=== PATIENT | female | born 1940 | race Caucasian/White ===

== ENCOUNTER 2023-05-11 23:24 | Observation (INO) | payer OTHER, SELFPAY ==
[2023-05-11] VITALS (7 sets, daily range): BP systolic 133–144; BP diastolic 69–97
[2023-05-11 19:34] LABS: % Basophils 0.9 % (0-2); % Eosinophils 3.4 % (0-6); % Immature Granulocytes 0.2 % (0-0.5); % Lymphocytes 41.6 % (20.5-51.1); % Monocytes 8.8 % (1.7-9.3); % Neutrophils 45.1 % (42.2-75.2); Absolute Basophils 0.1 10^3/uL (0-0.2); Absolute Eosinophils 0.2 10^3/uL (0-0.7); Absolute Lymphocytes 2.7 10^3/uL (1.2-3.4); Absolute Monocytes 0.6 10^3/uL (0.1-0.6); Absolute Neutrophils 2.9 10^3/uL (1.4-6.5); Hematocrit 38.9 % (37.0-47.0); Hemoglobin 12.4 g/dL (12.0-16.0); Mean Corp Hgb Conc. 31.9 g/dL (33.0-37.0); Mean Corpuscular Hgb 29.5 pg (27.0-31.0); Mean Corpuscular Volume 92.4 fL (81.0-99.0); Mean Platelet Volume 10.4 fL (7.4-10.4); Nucleated Red Blood Cells % 0 %; Platelet Count 250 10^3/uL (130-400); Red Blood Cell Count 4.21 10^6/uL (4.20-5.40); Red Cell Dist. Width 14.8 % (11.5-14.5); White Blood Cell Count 6.5 10^3/uL (4.8-10.8)
[2023-05-11 19:49] LABS: ALT (SGPT) 16 U/L (0-35); AST (SGOT) 27 U/L (14-36); Albumin 3.6 g/dl (3.5-5.0); Alkaline Phosphatase 83 U/L (38-126); Blood Urea Nitrogen 18 mg/dl (7-17); Carbon Dioxide 24 mmol/L (22-30); Chloride 104 mmol/L (98-107); Glucose 93 mg/dl (70-99); Potassium 3.9 mmol/L (3.5-5.1); Sodium 133 mmol/L (135-145); Total Bilirubin 0.3 mg/dl (0.2-1.3); Total Protein 6.6 g/dl (6.3-8.2); eGFR > 60.00
--- NOTE | 2023-05-11 19:49 | ED.GENMED ---
History of Present Illness
General
Chief Complaint: Heart Rate Problem
Source: other (Nursing staff and patient. )
Exam Limitations: dementia (Slight)
Time Seen by Provider: 05/11/23 19:23
Travel History
Have you had any contact with someone who has COVID-19?: No
Do you have any symptoms of coronavirus? Fever > 100 degrees, chills, cough, shortness of breath, sore throat, loss of taste or smell, muscle aches, or headache?: No
History of Present Illness
History of Present Illness:
This is a 82 year old female that is brought in by ambulance with c/o elevated heart rate. Patient states that she has a sore throat and she has a cough. States that she is unsure if she had a fever. Denies any chills, chest pain, SOB, abd pain,
nausea, vomiting, diarrhea, headache, dizziness, urinary burning.
Past History
Past History
ED Past Medical History: Cancer (Breast CA), HTN, Hypercholesterolemia, Hypothyroidism, Psychiatric (Depression) and Other (Dementia, Parkinson's, osteoporosis)
ED Past Surgical History: Other (lumpectomy)
Social History
Tobacco: Non-smoker
Alcohol: None
Drug: None
Living: care home
Family History
Family History: Other (NA)
Review of Systems
Review of Systems
Unable to obtain full review of systems at this time due to: dementia (Slight)
Other source history: other (Nursing staff and patient)
All Other Systems: ROS reviewed and negative except as documented in HPI and ROS
Constitutional: Reports no symptoms
EENT: Reports no symptoms
Respiratory: Reports cough; Denies trouble breathing
Cardiac: Reports no symptoms; Denies chest pain
ABD/GI: Reports no symptoms; Denies abdominal pain, nausea, vomiting or diarrhea
: Reports no symptoms; Denies dysuria, frequency or urgency
Musculoskeletal: Reports no symptoms
Skin: Reports no symptoms
Neurological: Reports no symptoms; Denies dizzy or headache
Psychiatric: Reports no symptoms
Phy Exam
General Physical Exam
General Presentation: no apparent distress
General age: appears stated age
General Skin: warm and dry
General Habitus: elderly
General Mental: usual mental status
General Hydration: dry mucous membranes
ENT Exam
ENT Exam: TM's normal, pharynx normal and neck supple
Eye Exam
Eye Exam: EOMI
Cardiovascular Exam
Cardiovascular Exam: regular rate/rhythm, no edema, normal peripheral pulses and other (Occasional PAC's)
Pulmonary Exam
Pulmonary Exam: lungs clear, no respiratory distress, no rales, chest non tender, no crackles, no rhonchi, no wheezing and no cough
Gastrointestinal Exam
Gastrointestinal Exam: normal bowel sounds, non tender, soft, no organomegaly, no pulsatile mass and non distended
Musculoskeletal Exam
Musculoskeletal Exam: full ROM and no edema
Skin Exam
Skin Exam: normal color, warm/dry, no rash and no petechia
Psychiatric Exam
Psychiatric Exam: normal mood/affect
Course
Orders/Labs/Results
Orders:
Orders
05/11/23 19:21
Electrocardiogram (*1) Urgent
Reason for Study: Tachycardia
EKG- Treatment ONCE
05/11/23 19:22
Complete Blood Count/With Diff Urgent
Comprehensive Metabolic Panel Urgent
TSH Reflex To Free T4 Urgent
Comment: ADD ON
05/11/23 19:49
Straight cath- Treatment ONCE
0.9% Sodium Chloride 1000 ml [Nss] 1,000 ml IV BOLUS
05/11/23 19:51
CR Chest - 2 Views Urgent
Comment:
Reason For Exam: Cough
05/11/23 19:52
Add On- LAB Urgent
Tests Added?: TSH with reflex free T4
05/11/23 20:04
Troponin I Urgent
05/11/23 20:06
Rapid Strep Group A Urgent
YASMINE Source: Throat/Pharynx
Specimen Description:
Date Specimen was Collected: 05/11/23
Time Specimen was Collected: 20:04
05/11/23 21:13
Troponin I Urgent
05/11/23 21:37
Urinalysis Reflex To Culture Urgent
Date Specimen was Collected: 05/11/23
Time Specimen was Collected: 21:36
Urine Microscopic Reflex Cult Urgent
Urine Culture Urgent
YASMINE Source: U
Specimen Description:
Date Specimen was Collected: 05/11/23
Time Specimen was Collected: 21:36
05/11/23 22:53
Magnesium 2 grams/50 mL Sterile Water IVPB (premix) over 2 hours NOW Magnesium Sulfate 2 Gram/50 ml [Magnesium Sulfate] 2 gram in 50 ml IV NOW
Abnormal Lab Results
05/11/23 05/11/23 05/11/23
19:22 21:13 21:37
MCHC 31.9 L g/dL
(33.0-37.0)
RDW 14.8 H %
(11.5-14.5)
Sodium 133 L mmol/L
(135-145)
BUN 18 H mg/dl
(7-17)
Troponin I 0.042 H* ng/ml
Urine Ketones Trace A
(Negative)
Urine Bilirubin 1+ A
(Negative)
Leukocyte Esterase Rfl 1+ A
(Negative)
Urine WBC (Reflex) 11-15 A /HPF
(0-5)
Urine Bacteria (Reflex) Moderate A
(Negative)
05/11/23 19:22
05/11/23 19:22
Sodium slightly low. Slight Dehydration. Troponin 0.034, Rapid strep negative, Urine positive for infection. TSH 3.02
Second Troponin 0.042
Vital Signs
Initial and Last Documented VS:
Initial Vital Signs
Temp Pulse Resp BP Pulse Ox
98.0 F 125 18 136/97 96
05/11/23 19:14 05/11/23 19:14 05/11/23 19:14 05/11/23 19:14 05/11/23 19:14
Last Documented Vital Signs
Temp Pulse Resp BP Pulse Ox
98.0 F 67 22 134/80 96
05/11/23 19:14 05/11/23 21:30 05/11/23 21:30 05/11/23 21:00 05/11/23 21:30
MDM/Problems Addressed
Differential Diagnosis Includes:
Dehdyration. UTI, PNA
MDM/Problems Addressed:
This is a 82 year old female that comes in by ambulance with c/o elevated heart rate. Patient states that she has a sore throat and a cough.
Will get labs, Chest x-ray and urine. Will also give IV fluids. HR at this times is 67
Back into see patient and son. Explained that her ECG shows a long QT interval and with the history of a fast heart rate there is concern for an arrhythmia. Patient also has a slightly elevated Troponin and UTI. Will give patient Magnesium and
Rocephin at this time and admit. Hospitalist notified.
Chronic conditions affecting care:
Hypothyroidism
Acute Exacerbation and/or Progression of Chronic Illness:
NA
*Pulse Oximetry
Patient hypoxic: no
*EKG
Interpreted by ED Provider?: Yes
Heart Rate: 124
Rate: tachycardiac
Rhythm: sinus tachycardia
[place]: left axis deviation
Interval: first degree heart block and long QT
QRS Pattern: normal QRS
Ischemia: no ischemia
*Offal Trimmer Interpretation
Rate: normal
Heart Rate: 67
Rhythm: sinus and PAC's
*Critical Care Note
Total Time (30-74mins, 75-104mins- exclusive of procedures): Not Applicable
ED Attending Note
-
Portions of this chart may have been created with voice recognition software.� Occasional wrong word or��sound alike� substitutions may have occurred due to the inherent limitations of voice recognition software.
Discharge Plan
Departure
Patient Disposition: Admit
Date of Disposition: 05/11/23
Time of Disposition: 23:01
Admit to: Telemetry
Presentation/result/management discussed w/ accepting MD/DO: Hospitalist
Patient with high blood pressure during this ER visit?: Yes
Condition: Good
Covid-19: Not Applicable
Discharge Problem:
Elevated troponin, UTI (urinary tract infection), Long QT interval
Prescriptions:
No Action
donepezil 10 MG tablet
10 mg PO DAILY@1999
acetaminophen 325 MG tablet
650 mg PO Q6H PRN (Reason: mild pain/temp>100)
atorvastatin 20 MG tablet
20 mg PO DAILY@1999
cyanocobalamin (vitamin B-12) 1,000 MCG tablet
1,000 mcg PO DAILY
melatonin 3 MG tablet
3 mg PO HS
gabapentin 100 MG capsule
100 mg PO BID@0800,1700
memantine 10 MG tablet
10 mg PO BID@0800,1700
calcium carbonate-vitamin D3 [Oyster Shell Calcium-Vit D3] 500 MG tablet
1 tab PO DAILY
sertraline 100 mg Tablet
100 mg PO DAILY
ondansetron HCl 4 mg Tablet
4 mg PO Q6H PRN (Reason: nausea)
levothyroxine 88 mcg tablet
88 mcg PO DAILY
CertaVite Senior 0.4 mg-300 mcg- 250 mcg Tablet
1 tab PO DAILY
Referrals:
Anuel Doe DO [Family Provider] -
Interventions
Interventions:
*Risk Screen - Suicide Last Done: 05/11/23 19:14
*General Assessment Last Done: 05/11/23 19:14
*Neglect/Abuse Screening Last Done: 05/11/23 19:14
ED- Cardiac Assessment Last Done: 05/11/23 19:20
ED- Pulmonary Assessment Last Done: 05/11/23 19:20
[2023-05-11] MEDS: NSS 1000 IV (20:05)
[2023-05-11 20:42] LABS: Troponin I 0.034 ng/ml
[2023-05-11 21:17] LABS: TSH Reflex To Free T4 3.02 uIU/ml (0.47-4.68)
[2023-05-11 21:43] LABS: Urine Albumin Trace (Neg - Trace); Urine Bilirubin 1+ (Negative); Urine Character Slightly Cloudy (Clear); Urine Color Yellow; Urine Glucose Negative (Negative); Urine Ketone Trace (Negative); Urine Leukocyte 1+ (Negative); Urine Nitrite Negative (Negative); Urine Occult Blood Negative (Negative); Urine Specific Gravity 1.025 (<1.030); Urine Urobilinogen 1+ (Neg - 1+)
[2023-05-11 21:49] LABS: Urine Bacteria Moderate (Negative); Urine Mucus Few; Urine Red Blood Cell 0-2 /HPF (0-2)
[2023-05-11 22:04] LABS: Troponin I 0.042 ng/ml
--- NOTE | 2023-05-11 23:29 | HPS.HSE ---
Family Physician
-
Family Physician: Anuel Doe
Chief Complaint
-
palpitations
History of Present Illness
82-year-old female past medical history of breast cancer, hypothyroidism, hypertension, Alzheimer's dementia, depression, hypercholesterolemia, presenting from [facility] with elevated heart rate. Patient is a poor historian due to dementia and son
providing some history. Patient was apparently complaining of palpitations today. No dizziness, chest pain, shortness of breath. She also had some dry throat and was tested for COVID there and was negative. She denies any raul sore throat or
cough or fevers or chills or nausea or vomiting or diarrhea or urinary symptoms such as burning or frequency or suprapubic pain.
There is no history of cardiac disease.
No current smoking or alcohol use. Family history is unknown.
Medical History
Past Medical History
Past Medical History: Reports Other (breast cancer, hypothyroidism, hypertension, Alzheimer's dementia, depression, hypercholesterolemia, )
Past Surgical History: Reports None
Social History
Tobacco: Non-smoker
Alcohol: None
Drug: None
Family History
Family History: Not pertinent
Allergies / Home Medications
Allergies reflects when Allergies were last updated in [employer].
Home Medications with original date entered in [employer]
Allergy/Medication List:
Allergies
Allergy/AdvReac Type Severity Reaction Status Date / Time
erythromycin base Allergy Unknown Verified 05/26/18 18:57
rosuvastatin [From Crestor] Allergy Unknown Verified 05/26/18 18:57
Home Medications
donepezil 10 mg tablet 10 mg PO DAILY@199905/26/18
acetaminophen 325 mg tablet 650 mg PO Q6H PRN mild pain/temp>100 03/31/19
atorvastatin 20 mg tablet 20 mg PO DAILY@199903/31/19
calcium carbonate 500 mg-vitamin D3 5 mcg (200 unit) tablet (Oyster Shell Calcium-Vitamin D3) 1 tab PO DAILY 03/31/19
cyanocobalamin (vitamin B-12) 1,000 mcg tablet 1,000 mcg PO DAILY 03/31/19
gabapentin 100 mg capsule 100 mg PO BID@0800,1700 03/31/19
melatonin 3 mg tablet 3 mg PO HS 03/31/19
memantine 10 mg tablet 10 mg PO BID@0800,1700 03/31/19
sertraline 100 mg tablet 100 mg PO DAILY 02/25/22
levothyroxine 88 mcg tablet 88 mcg PO DAILY 05/11/23
zgakpnbu-hpg-zdkov acid 0.4 mg-lycopene 300 mcg-lutein 250 mcg tablet (CertaVite Senior) 1 tab PO DAILY 05/11/23
ondansetron HCl 4 mg tablet 4 mg PO Q6H PRN nausea 05/11/23
Review of Systems
-
History Source: Patient
A 12 point ROS was completed and negative except as noted: Yes
Constitutional: Reports No Symptoms
EENT: Reports No Symptoms
Respiratory: Reports See HPI
Cardiac: Reports See HPI
Abdomen/GI: Reports No Symptoms
: Reports No Symptoms
Musculoskeletal: Reports No Symptoms
Skin: Reports No Symptoms
Neurological: Reports No Symptoms
Endocrine: Reports No Symptoms
Hematologic/Lymphatic: Reports No Symptoms
Psych: Reports No Symptoms
Physical Exam
Vital Signs
Vital Signs
Temp Pulse Resp BP Pulse Ox
98.0 F 67 22 134/80 96
05/11/23 19:14 05/11/23 21:30 05/11/23 21:30 05/11/23 21:00 05/11/23 21:30
Physical Exam
General: Well Developed, Well Nourished and No Apparent Distress
HEENT: NormoCephalic, Moist mucous membranes and Atraumatic
Respiratory: Clear
Cardiac: S1/S2 and Regular Rhythm; No Murmur or Rub
GI: Soft, Non Tender, Non Distended and Normal Bowel Sounds; No Organomegaly
Rectal: Deferred by Provider
Musculoskeletal: No Clubbing, No Cyanosis and No Edema
Skin: No Rash
Neuro: Nonfocal/grossly intact
Laboratory Results
-
05/11/23 19:22
05/11/23 19:22
Laboratory Results
Total Bilirubin 0.3 mg/dl (0.2-1.3) 05/11/23 19:22
AST 27 U/L (14-36) 05/11/23 19:22
ALT 16 U/L (0-35) 05/11/23 19:22
Alkaline Phosphatase 83 U/L (38-126) 05/11/23 19:22
Troponin I 0.042 ng/ml H* 05/11/23 21:13
Data Reviewed
-
Lab Data: Labs Reviewed by me
Old Records: Reviewed
Impression/Plan
-
IMPRESSION:
PLAN:
# Narrow complex tachycardia, now resolved
# Prolonged QTc possibly secondary to donepezil/memantine
-Initial EKG shows heart rate of 124, narrow complex tachycardia without P waves ,now resolved
-Heart rate currently 60s after receiving IV fluids
-Hold donepezil, memantine
-Magnesium given to prevent torsades
-Cardiology consulted
-Recheck EKG in a.m.
# Nonischemic myocardial injury likely due to tachycardia
-Troponin 0.034, now 0.042
-Trend troponins until peak
# Possible upper respiratory infection
-Symptoms are extremely mild
-Check COVID, influenza
-Chest x-ray appears unremarkable
# Asymptomatic pyuria
-No urinary symptoms, unclear why checked
-UA shows 11-15 WBC, moderate bacteria, +1 leukocyte esterase
-Ceftriaxone given, hold further antibiotics
Breast cancer
Hypothyroidism
-Continue levothyroxine
Essential hypertension
Alzheimer's dementia
-Continue donepezil, memantine
Anxiety/depression
-Continue sertraline
Hypercholesterolemia
-Continue statin
Osteoarthritis
-Continue gabapentin
DNR/DNI
DVT prophylaxis�heparin
Regular diet
[2023-05-11] MEDS: ROCEPHIN 1000 MG IV (23:36)
[2023-05-11] MEDS: MAGNESIUM SULFATE 50 IV (23:36)
[2023-05-12] VITALS (7 sets, daily range): BP systolic 129–158; BP diastolic 63–98
[2023-05-12 00:49] LABS: COVID-19 Antigen Negative (Negative)
[2023-05-12 02:24] LABS: Troponin I < 0.012 ng/ml
[2023-05-12 06:39] LABS: % Basophils 1.1 % (0-2); % Eosinophils 4.4 % (0-6); % Immature Granulocytes 0.2 % (0-0.5); % Lymphocytes 32.6 % (20.5-51.1); % Monocytes 8.4 % (1.7-9.3); % Neutrophils 53.3 % (42.2-75.2); Absolute Basophils 0.1 10^3/uL (0-0.2); Absolute Eosinophils 0.2 10^3/uL (0-0.7); Absolute Lymphocytes 1.6 10^3/uL (1.2-3.4); Absolute Monocytes 0.4 10^3/uL (0.1-0.6); Absolute Neutrophils 2.5 10^3/uL (1.4-6.5); Hematocrit 35.8 % (37.0-47.0); Hemoglobin 11.6 g/dL (12.0-16.0); Mean Corp Hgb Conc. 32.4 g/dL (33.0-37.0); Mean Corpuscular Volume 92.5 fL (81.0-99.0); Mean Platelet Volume 10.3 fL (7.4-10.4); Nucleated Red Blood Cells % 0 %; Platelet Count 215 10^3/uL (130-400); Red Blood Cell Count 3.87 10^6/uL (4.20-5.40); Red Cell Dist. Width 14.6 % (11.5-14.5); White Blood Cell Count 4.8 10^3/uL (4.8-10.8)
[2023-05-12 06:58] LABS: ALT (SGPT) 14 U/L (0-35); AST (SGOT) 24 U/L (14-36); Albumin 3.1 g/dl (3.5-5.0); Alkaline Phosphatase 78 U/L (38-126); Blood Urea Nitrogen 12 mg/dl (7-17); Calcium 8.4 mg/dl (8.4-10.2); Carbon Dioxide 26 mmol/L (22-30); Chloride 106 mmol/L (98-107); Glucose 96 mg/dl (70-99); Potassium 3.8 mmol/L (3.5-5.1); Sodium 134 mmol/L (135-145); Total Bilirubin 0.5 mg/dl (0.2-1.3); Total Protein 5.9 g/dl (6.3-8.2); eGFR > 60.00
[2023-05-12 07:03] LABS: Troponin I < 0.012 ng/ml
[2023-05-12] MEDS: VITAMIN B-12 1000 MCG PO (08:00)
[2023-05-12] MEDS: NEURONTIN 100 MG PO ×2 (08:00→16:13)
[2023-05-12] MEDS: OSCAL 500 + D 500 MG PO (08:00)
[2023-05-12] MEDS: THERAGRAN 1 TABLET PO (08:00)
[2023-05-12] MEDS: HEPARIN 5000 UNITS SC ×2 (08:00→20:50)
[2023-05-12] MEDS: SYNTHROID 88 MCG PO (08:25)
[2023-05-12] MEDS: ZOLOFT 100 MG PO (08:25)
--- NOTE | 2023-05-12 08:41 | CON.CAR ---
Addendum entered and electronically signed by Andrew Constantino MD 05/12/23 13:10:
I saw and examined the patient.
The Caser In's note was reviewed and I agree with the note.
Comment:
GEN: No distress, awake, alert
HEENT: supple, anicteric, mmm
LUNGS: CTA, no wheezes/rales
CV: Reg, S1/S2, 1/6 syst LSB, no gallop
ABD: soft, BS+, NT/ND
EXT: No edema
NEURO: Gross non-focal
SKIN: No rash
Plan:
She has a past medical history of hypertension, dementia, hypothyroidism, and a history of bilateral pulmonary embolisms in 2019 who presents with palpitations, tachycardia, and fatigue.
EKG with atrial tachycardia but now back in sinus rhythm. Troponin was indeterminate and now normal.
Discussed case with family. Will add Toprol 12.5 mg daily. EKG with stable QT interval currently of 450 ms in sinus rhythm.
Will check echocardiogram. If echocardiogram stable okay for transfer back to [facility] from cardiac standpoint.
Original Note:
Consultation
Consultation Request
Date/Time Consultation Requested: 05/11/2023
Date/Time Consultation Performed: 05/12/2023
Requesting Provider: Dr. Calzada
Performing Provider: Caryn Nicholson PA-C for Dr. Constantino
Reason for Consultation: Abnormal troponin, tachycardia
Medical History
-
History of Present Illness:
Patient is an 82-year-old female past medical history of breast cancer, hypothyroidism, hypertension, Alzheimer's dementia, depression, hypercholesterolemia, and bilateral pulmonary emboli March 2019 who presented 05/11/2023 from [facility] with
palpitations and tachycardia. She c/o dry throat and was tested for COVID and was negative. There was no associated dizziness, chest pain, shortness of breath.� On presentation EKG showed sinus tachycardia at 124 bpm with LVH and prolonged QT 551
ms. IN ED patient received IV fluids and magnesium bolus. Repeat EKG on 05/12/2023 shows sinus rhythm at 67 bpm and normal QTc. Initial troponin 0.034, peaked at 0.042 and has been negative x 2. Chest x-ray with moderate to large hiatal hernia and
mild chronic elevation of right diaphragm. Also concern for UTI and placed on IV antibiotics.
Patient is a poor historian due to dementia and son providing some history.
PMH:
Hypertension
Hypothyroidism
Alzheimer's dementia
Depression
Hyperlipidemia
Breast cancer
Pulmonary emboli March 2019
Past Medical History
Past Medical History: Other (See HPI)
Past Surgical History: Other (Bilateral lumpectomies)
Social History
Tobacco: Non-Smoker
Alcohol: None
Drug: None
Living: Skilled Nursing ([facility])
Family History
Family History: Reviewed & Not Pertinent
Allergies / Home Medications
Allergy/AdvReac Type Severity Reaction Status Date / Time
erythromycin base Allergy Unknown Verified 05/26/18 18:57
rosuvastatin [From Crestor] Allergy Unknown Verified 05/26/18 18:57
Medication Instructions Recorded Confirmed Type
donepezil 10 mg tablet 10 mg PO DAILY@199905/26/18 05/11/23 History
acetaminophen 325 mg tablet 650 mg PO Q6H PRN mild 03/31/19 05/11/23 History
pain/temp>100
atorvastatin 20 mg tablet 20 mg PO DAILY@199903/31/19 05/11/23 History
calcium carbonate 500 mg-vitamin 1 tab PO DAILY 03/31/19 05/11/23 History
D3 5 mcg (200 unit) tablet (Oyster
Shell Calcium-Vitamin D3)
cyanocobalamin (vitamin B-12) 1,000 mcg PO DAILY 03/31/19 05/11/23 History
1,000 mcg tablet
gabapentin 100 mg capsule 100 mg PO BID@0800,1700 03/31/19 05/11/23 History
melatonin 3 mg tablet 3 mg PO HS 03/31/19 05/11/23 History
memantine 10 mg tablet 10 mg PO BID@0800,1700 03/31/19 05/11/23 History
sertraline 100 mg tablet 100 mg PO DAILY 02/25/22 05/11/23 History
levothyroxine 88 mcg tablet 88 mcg PO DAILY 05/11/23 05/11/23 History
nuioartt-cqn-guqnw acid 0.4 1 tab PO DAILY 05/11/23 05/11/23 History
mg-lycopene 300 mcg-lutein 250 mcg
tablet (CertaVite Senior)
ondansetron HCl 4 mg tablet 4 mg PO Q6H PRN nausea 05/11/23 05/11/23 History
Review of Systems
-
Unable to obtain full review of systems at this time due to: Dementia
History Source: Family (Son Micah) and Coordinating Provider
Physical Exam
Vital Signs
Temp Pulse Resp BP Pulse Ox
98.0 F 63 17 131/63 92
05/11/23 19:14 05/12/23 02:30 05/12/23 02:30 05/12/23 02:00 05/12/23 02:30
GEN: No distress, awake, Ox3
HEENT: supple, anicteric, mmm
LUNGS: CTA, no wheezes/rales
CV: Reg, S1/S2, no murmur, rubs or gallops
ABD: soft, BS+, NT/ND
EXT: No edema, clubbing or cyanosis
NEURO: Gross non-focal
SKIN: No rash,w arm, dry
Lab Results
05/12/23 06:17
05/12/23 06:17
Troponin I < 0.012 ng/ml 05/12/23 06:17
Impression / Plan
-
Family Physician:� Anuel Doe
Radial Arm Saw Operator: None prior to admission, initial consultation Dr. Constantino
Impression:
Presented 05/11/2023 with palpitations
Tachycardia
Abnormal troponin, peaked 0.042
UTI
Hypertension
Hypothyroidism
Alzheimer's dementia
Depression
Hyperlipidemia
Breast cancer status post bilateral lumpectomies
Pulmonary emboli March 2019
Echo 04/01/2019: EF 55%, severely dilated right atrium, RV Normal size with mild hypokinesis, mild MR, moderate TR, PAP 35 to 40 mmHg
Plan:
Patient is an 82-year-old female past medical history of breast cancer, hypothyroidism, hypertension, Alzheimer's dementia, depression, hypercholesterolemia, and bilateral pulmonary emboli March 2019 who presented 05/11/2023 from [facility] with
complaints fof dry/sore throat and was noted to be tachycardia. She was tested for COVID/Flu are negative. There was no associated dizziness, chest pain, shortness of breath.� On presentation EKG showed sinus tachycardia at 124 bpm with LVH and
prolonged QT 551 ms. In ED patient received IV fluids and magnesium bolus. Repeat EKG on 05/12/2023 shows sinus rhythm at 67 bpm and normal QTc. Initial troponin 0.034, peaked at 0.042 and has been negative x 2. Chest x-ray with moderate to large
hiatal hernia and mild chronic elevation of right diaphragm. Also concern for UTI and placed on IV antibiotics. At time of this evaluation patient resting comfortably in bed without complaints.
Patient is a poor historian due to dementia and son, Micah, providing some history. Son reports she had fallen 05/09/23 but did not injury herself. He saw her 05/10/23 and she looked okay.
-Presented 05/11/2023 with palpitations, tachycardia
-On admission abnormal ECG 05/11/2023 which showed sinus tachycardia at 124 bpm with LVH and prolonged QT 551 ms. Heart rate improved with IV fluids and IV magnesium bolus. EKG repeated on 05/12/2023 which shows sinus rhythm with sinus arrhythmia and
QTc of 467 ms
-Per review of telemetry heart rates have been stable in the 60's-70's bpm and no arrhythmias.
-Patient was on Donepezil, memantine and Sertraline on presentation. Also Zofran prn. These can prolong QT. Would AVOID QT prolonging agents if possible.
-Abnormal troponin, initial troponin 0.034, peaked at 0.042 and has been negative x 2. Suspect nonischemic myocardial injury secondary to tachycardia. Patient chest pain-free and EKG without ischemic changes
-History of hypothyroidism, TSH 3.02
-Concern for UTI patient given antibiotics x 1
-Son reports she had fallen 05/09/23 but did not injury herself. Also 3 falls in the last year. Consider PT eval
Data Reviewed
-
EKG: Report Reviewed by me, Discussed with Physician, Discussed with Patient and Discussed with Family
Radiology: Report Reviewed by me, Discussed with Physician, Discussed with Patient and Discussed with Family
Labs: Labs Reviewed by me, Discussed with Physician, Discussed with Patient and Discussed with Family
Old Records: Reviewed
--- NOTE | 2023-05-12 09:31 | CM ---
CM reviewed medical records. CM met with patient and son in room. Patient lives at [facility]. Patient is independent with ambulation, but requires a walker. Patient does not have a history of SNF placement. Patient PCP is Dr. Doe.
Plan to return to [facility] on discharge. Son plans to transport.
PLAN: Return to [facility]
[2023-05-12] MEDS: TOPROL XL 12.5 MG PO (12:30)
--- NOTE | 2023-05-12 12:52 | W.PN.HOSP.TC ---
Today's Communication/Plan
-
.
Assessment / Plan
Assessment / Plan
Physical Exam
GEN: No distress, awake, Ox3
HEENT: supple, anicteric, mmm
LUNGS: CTA, no wheezes/rales
CV: Reg, S1/S2, no murmur, rubs or gallops
ABD: soft, BS+, NT/ND
EXT: No edema, clubbing or cyanosis
NEURO: AAOX1( son), followed commands. Forgetful.
SKIN: No rash,w arm, dry
Psych: no agitation
# Narrow complex tachycardia, now resolved
# Prolonged QTc possibly secondary to donepezil/memantine/ sertraline. Repeat EKG normal QT
-Initial EKG showed heart rate of 124, narrow complex tachycardia without P waves ,now resolved
-Heart rate currently 60s after receiving IV fluids
-Hold donepezil, memantine
-Magnesium given to prevent torsades
-Cardiology consulted
-Recheck EKG in a.m.
# Nonischemic myocardial injury likely due to tachycardia
-Troponin 0.034, 0.042 then negative
No chest pain or SOB
F/W echo
# Possible upper respiratory infection
-Symptoms are extremely mild
- Negative COVID, influenza
-Chest x-ray appears unremarkable
# Asymptomatic pyuria
-No urinary symptoms.
-UA shows 11-15 WBC, moderate bacteria, +1 leukocyte esterase
-Ceftriaxone given, hold further antibiotics until culture results
Breast cancer
Hypothyroidism
-Continue levothyroxine
Essential hypertension
Alzheimer's dementia
-Continue donepezil, memantine
Anxiety/depression
-Continue sertraline
Hypercholesterolemia
-Continue statin
Osteoarthritis
-Continue gabapentin
DNR/DNI
DVT prophylaxis�heparin
Regular diet
�Total time spent to see the patient, examine the patient on the floor, review data and lab results, discuss treatment plan with the patient, Son, nursing staff around 55 minutes
Anticipated Discharge: Within 24 hours
Subjective/Interval History
-
Date of Service: May 12, 2023
Objective Data
-
Labs:
Laboratory Results
05/12/23
06:17
WBC 4.8
Hgb 11.6 L
Hct 35.8 L
Plt Count 215
Sodium 134 L
Potassium 3.8
Chloride 106
Carbon Dioxide 26
BUN 12
Creatinine 0.6
Glucose 96
Calcium 8.4
Total Bilirubin 0.5
AST 24
ALT 14
Alkaline Phosphatase 78
Vital Signs:
Vital Signs
Temp Pulse Resp BP Pulse Ox
97.8 F 75 16 142/98 95
05/12/23 10:56 05/12/23 10:56 05/12/23 10:56 05/12/23 10:56 05/12/23 10:56
--- NOTE | 2023-05-12 14:29 | PTCARENOTE ---
pt recvd to the floor in room 410-2, pt was able to stand and step on standing scale. Pt was able to take a few steps to her hospital bed without incident. Pt is confused a+ox1, in no distress and laying comfortably in the bed with call bush in
hand. Son is bedside with pt.
--- NOTE | 2023-05-12 17:17 | PTCARENOTE ---
Pt came back from [facility] on stretcher with transport. Pt was a+ox1, she was able to walk to her hospital bed with walker w/o incident.
[2023-05-12] MEDS: LIPITOR 20 MG PO (20:50)
[2023-05-12] MEDS: MELATONIN 3 MG PO (22:31)
[2023-05-13 03:00] VITALS: BP 146/75
[2023-05-13] MEDS: SYNTHROID 88 MCG PO (06:00)
[2023-05-13 07:55] VITALS: BP 129/70
--- NOTE | 2023-05-13 08:32 | W.PN.CARDCBS ---
Addendum entered and electronically signed by Víctor Henderson MD 05/13/23 16:23:
I saw and examined the patient.
The COFOUNDER or PA's note was reviewed and I agree with the note.
Comment: General: Well developed, well nourished in NAD.
Stable cardiology status for discharge
Discussed with patient and family at bedside
No more tachycardia
Follow-up arranged
Original Note:
Today's Communication / Plan
-
Continue Toprol 12.5mg daily
Avoid QT prolonging meds
Follow up arranged
Impression / Plan
-
Family Physician:� Anuel Doe
Gas Burner Operator: None prior to admission, initial consultation Dr. Constantino
Impression:
Presented 05/11/2023 with palpitations
Tachycardia
Abnormal troponin, peaked 0.042
UTI
Hypertension
Hypothyroidism
Alzheimer's dementia
Depression
Hyperlipidemia
Breast cancer status post bilateral lumpectomies
Pulmonary emboli March 2019
Echo 04/01/2019: EF 55%, severely dilated right atrium, RV Normal size with mild hypokinesis, mild MR, moderate TR, PAP 35 to 40 mmHg
Echo 05/12/2023: EF 45-50%, mild MR, mild to moderate TR, estimated PAP 25-30 mmHg
Plan:
-Presented 05/11/2023 with palpitations, tachycardia.
-Initial EKG showed sinus tachycardia w/ prolonged QT at 551ms. QTc improved to 467 ms on follow up EKG 05/11.
-Heart rate improved with IV fluids and IV magnesium bolus. On review of telemetry, HRs remain stable. No arrhythmias noted. Continue low dose Toprol 12.5mg daily.
-Patient was on Donepezil, memantine and Sertraline on presentation. Also Zofran prn. Would AVOID QT prolonging agents if possible.
-Elevated troponin noted with peak troponin of 0.042, trending down thereafter. Suspect nonischemic myocardial injury in the setting of tachycardia. Remains chest pain free.
-Follow up arranged w/ cardiology
HPI: Patient is an 82-year-old female past medical history of breast cancer, hypothyroidism, hypertension, Alzheimer's dementia, depression, hypercholesterolemia, and bilateral pulmonary emboli March 2019 who presented 05/11/2023 from [facility]
with complaints fof dry/sore throat and was noted to be tachycardia. She was tested for COVID/Flu are negative. There was no associated dizziness, chest pain, shortness of breath.� On presentation EKG showed sinus tachycardia at 124 bpm with LVH
and prolonged QT 551 ms. In ED patient received IV fluids and magnesium bolus. Repeat EKG on 05/12/2023 shows sinus rhythm at 67 bpm and normal QTc. Initial troponin 0.034, peaked at 0.042 and has been negative x 2. Chest x-ray with moderate to
large hiatal hernia and mild chronic elevation of right diaphragm. Also concern for UTI and placed on IV antibiotics. At time of this evaluation patient resting comfortably in bed without complaints. Patient is a poor historian due to dementia and
son, Micah, providing some history. Son reports she had fallen 05/09/23 but did not injury herself. He saw her 05/10/23 and she looked okay.
Progress Note - Gas Burner Operator
Subjective
Date of Service: May 13, 2023
Offers no complaints. Denies chest pain or palpitations.
Objective
Labs:
05/12/23 06:17
05/12/23 06:17
Labs
Hgb 11.6 g/dL (12.0-16.0) L 05/12/23 06:17
Hct 35.8 % (37.0-47.0) L 05/12/23 06:17
Plt Count 215 10^3/uL (130-400) 05/12/23 06:17
Sodium 134 mmol/L (135-145) L 05/12/23 06:17
Potassium 3.8 mmol/L (3.5-5.1) 03/19/24 06:17
BUN 12 mg/dl (7-17) 05/12/23 06:17
Creatinine 0.6 mg/dL (0.6-1.0) 05/12/23 06:17
Glucose 96 mg/dl (70-99) 05/12/23 06:17
Troponins
05/11/23 05/11/23 05/12/23
20:04 21:13 01:48
Troponin I 0.034 0.042 H* < 0.012 D
05/12/23 05/12/23
06:17 13:36
Troponin I < 0.012 Cancelled
Vital Signs and I&O:
Vital Signs
Temp Pulse Resp BP Pulse Ox
97.9 F 65 16 146/75 93
05/13/23 03:00 05/13/23 03:00 05/13/23 03:00 05/13/23 03:00 05/13/23 03:00
Vital Signs
Temp Pulse Resp BP Pulse Ox
97.9 F 65 16 146/75 93
05/13/23 03:00 05/13/23 03:00 05/13/23 03:00 05/13/23 03:00 05/13/23 03:00
Intake & Output
05/11/23 05/12/23 05/13/23 05/14/23
06:59 06:59 06:59 06:59
Intake Total 360 / 360
Balance 360 / 360
Physical Exam
Physical Exam
GEN: No distress, awake, alert
HEENT: supple, anicteric, mmm
LUNGS: CTA b/l, no wheezes/rales
CV: Reg, S1/S2, no murmur, rubs or gallops
EXT: No edema, clubbing or cyanosis
NEURO: Gross non-focal
SKIN: No rash,w arm, dry
[2023-05-13 09:10] VITALS: BP 129/70; PULSE 80; O2SAT 98
[2023-05-13] MEDS: HEPARIN 5000 UNITS SC (09:32)
[2023-05-13] MEDS: ZOLOFT 100 MG PO (09:32)
[2023-05-13] MEDS: NEURONTIN 100 MG PO (09:32)
[2023-05-13] MEDS: TOPROL XL 12.5 MG PO (09:32)
[2023-05-13] MEDS: VITAMIN B-12 1000 MCG PO (09:33)
[2023-05-13] MEDS: OSCAL 500 + D 500 MG PO (09:33)
[2023-05-13] MEDS: THERAGRAN 1 TABLET PO (09:33)
[2023-05-13 09:53] VITALS: BP 129/70; PULSE 80; O2SAT 98
--- NOTE | 2023-05-13 10:48 | W.PN.HOSP.TC ---
Addendum entered and electronically signed by Yasmany Fulton MD 05/13/23 11:01:
Addendum
Hyponatremia, mild
will check with cardiology if ok to dc and d/w telephonic nurse case manager and the son of the pt.
Total discharge time spent to see the patient, examine the patient on the floor, review data and lab results, discuss discharge plan with the patient, nursing staff around 65 minutes
Original Note:
Today's Communication/Plan
-
.
Assessment / Plan
Assessment / Plan
Physical Exam
GEN: No distress, awake, Ox3
HEENT: supple, anicteric, mmm
LUNGS: CTA, no wheezes/rales
CV: Reg, S1/S2, no murmur, rubs or gallops
ABD: soft, BS+, NT/ND
EXT: No edema, clubbing or cyanosis
NEURO: AAOX1( son), followed commands. Forgetful.
SKIN: No rash,w arm, dry
Psych: no agitation
# Narrow complex tachycardia, now resolved
Echocardiogram showed LVEF 45-50%/mild MR, mild to moderate TR, mild to moderate pulmonic regurgitation.
Continue with Toprol XL 12.5 mg daily
# Prolonged QTc possibly secondary to donepezil/memantine/ sertraline. Repeat EKG normal Q. Resolved T
-Initial EKG showed heart rate of 124, narrow complex tachycardia without P waves ,now resolved
-Heart rate currently 60s after receiving IV fluids
-Held donepezil and probably is the culprit. Can resume memantine.
-Magnesium given to prevent torsades
-Cardiology consulted
# Nonischemic myocardial injury likely due to tachycardia
-Troponin 0.034, 0.042 then negative
No chest pain or SOB
Echo showed LVEF 45-50%/mild MR, mild to moderate TR, mild to moderate pulmonic regurgitation.
# Possible upper respiratory infection
-Symptoms are extremely mild
- Negative COVID, influenza
-Chest x-ray appears unremarkable
# Asymptomatic pyuria
-No urinary symptoms.
-UA shows 11-15 WBC, moderate bacteria, +1 leukocyte esterase
-Ceftriaxone given, hold further antibiotics until culture results
Breast cancer
Hypothyroidism
-Continue levothyroxine
Essential hypertension
Alzheimer's dementia
-Continue donepezil, memantine
Anxiety/depression
-Continue sertraline
Hypercholesterolemia
-Continue statin
Osteoarthritis
-Continue gabapentin
DNR/DNI
DVT prophylaxis�heparin
Regular diet
�Total time spent to see the patient, examine the patient on the floor, review data and lab results, discuss treatment plan with the patient, Son, nursing staff around 57 minutes
Anticipated Discharge: Within 24 hours
Subjective/Interval History
-
Date of Service: May 13, 2023
Mild nausea this morning
Does not feel ready to go home
Objective Data
-
Vital Signs:
Vital Signs
Temp Pulse Resp BP Pulse Ox
97.8 F 66 16 129/70 97
05/13/23 07:55 05/13/23 09:32 05/13/23 07:55 05/13/23 09:32 05/13/23 07:55
I&O
05/12/23 05/13/23 05/14/23
06:59 06:59 06:59
Intake Total 360 / 360
Balance 360 / 360
[2023-05-13 11:55] VITALS: BP 145/79
--- NOTE | 2023-05-13 13:41 | CM ---
CM reviewed chart and noted dc order
Call with nursing/[facility] Na
Clinicals reviewed verbally and pt accepted back for admission
No VN or outpt therapy orders needed
Pt remains OBS
VM left for son/Micah with update
Discharge Disposition- return [facility]
Nursing report [phone] (Na/nurse) Fax- [phone]
--- NOTE | 2023-05-13 14:31 | W.DCSUMMARY ---
Discharge Summary
Discharge Data
Date of Admission: 05/11/23
Date of Discharge: 05/13/23
-
Pending Results: No
Hospital Course
82 years old female presented to the emergency room with history of palpitations. History was limited due to underlying dementia. Patient complained of palpitation but no chest pain or dizziness. [facility] of sore throat at the [facility]. Repeat COVID test came back negative. She had negative influenza and Streptococcus screening tests. She did not have leukocytosis or fever. She was found to have sinus tachycardia. She was evaluated
by unix manager. Echocardiogram showed left ventricular ejection fraction 45 to 50% with mild mitral regurgitation, mild to moderate tricuspid regurgitation and mild to moderate pulmonic regurgitation. She was started on low-dose extended release
metoprolol. She was noted to have prolonged QT interval. Patient was taking combination of donepezil, memantine and sertraline. Donepezil was stopped. She had repeat electrocardiogram few times with normal QT interval. She had mild elevation
troponin was diagnosed with nonischemic myocardial injury secondary to tachycardia. Furniture Inspector recommended outpatient follow-up. Urine test showed positive leukocytes and urine culture did not show any bacterial infection. Patient remained
hemodynamically stable and was discharged in a stable condition. Her son was updated about the discharge planning.
Discharge Plan
-
Patient Disposition: [facility]
Discharge Diagnosis/Procedures: Tachycardia, you were started on Toprol XL.
prolonged QT, we stopped Aricept.
Non-ischemic myocardial injury in the setting of tachycardia.
Suspect chronic heart failure with reduced ejection fraction to 45-50%.
You were seen by unix manager, you will need to follow in the office.
Diet: As tolerated, Low Fat and Low Sodium
Referrals:
Caryn Nicholson PA-C [Specified Professional Personl] - 06/03/23 2:40 pm (You have a follow up visit with Dr. Constantino's Caryn HARRINGTON, at the [place] office. Please call with questions. )
Anuel Doe DO [Family Provider] - in one to two weeks
Prescriptions:
New
metoprolol succinate 25 mg Tablet Extended Release 24 Hr
12.5 mg PO DAILY Qty: 30 0RF
Continued
acetaminophen 325 MG tablet
650 mg PO Q6H PRN (Reason: mild pain/temp>100)
atorvastatin 20 MG tablet
20 mg PO DAILY@1999
cyanocobalamin (vitamin B-12) 1,000 MCG tablet
1,000 mcg PO DAILY
melatonin 3 MG tablet
3 mg PO HS
gabapentin 100 MG capsule
100 mg PO BID@0800,1700
memantine 10 MG tablet
10 mg PO BID@0800,1700
calcium carbonate-vitamin D3 [Oyster Shell Calcium-Vit D3] 500 MG tablet
1 tab PO DAILY
sertraline 100 mg Tablet
100 mg PO DAILY
ondansetron HCl 4 mg Tablet
4 mg PO Q6H PRN (Reason: nausea)
levothyroxine 88 mcg tablet
88 mcg PO DAILY
CertaVite Senior 0.4 mg-300 mcg- 250 mcg Tablet
1 tab PO DAILY
Discontinued
donepezil 10 MG tablet
10 mg PO DAILY@1999
Discharge Orders:
Discharge Patient (As Directed); Ordered 05/13/23
Ordered By: Yasmany Fulton
Discharge Date and Time
Discharge Date/Time: 05/13/23 14:17
== END 2023-05-13 14:17 | disposition home or self-care (01) ==
LOC: 4 EAST ACU 23:24
PROVIDERS: Clinical Nurse Specialist Family Health; ADMITTING PHYSICIAN Hospitalist; ATTENDING PHYSICIAN Internal Medicine; EMERGENCY PHYSICIAN Emergency Medicine; FAMILY PHYSICIAN Internal Medicine; OTHER PHYSICIAN Internal Medicine Cardiovascular Disease
DX: R00.0 Tachycardia, unspecified (principal); J02.9 Acute pharyngitis, unspecified; R05.9 Cough, unspecified; R00.2 Palpitations; F32.A Depression, unspecified; E78.00 Pure hypercholesterolemia, unspecified; G30.9 Alzheimer's disease, unspecified; F02.A0 Dementia in other diseases classified elsewhere, mild, without behavioral disturbance, psychotic disturbance, mood disturbance, and anxiety; I10 Essential (primary) hypertension; R53.83 Other fatigue; K44.9 Diaphragmatic hernia without obstruction or gangrene; E87.1 Hypo-osmolality and hyponatremia; M19.90 Unspecified osteoarthritis, unspecified site; E03.9 Hypothyroidism, unspecified; I5A Non-ischemic myocardial injury (non-traumatic); G20.A1 Parkinson's disease without dyskinesia, without mention of fluctuations; M81.0 Age-related osteoporosis without current pathological fracture; Z85.3 Personal history of malignant neoplasm of breast; Z11.52 Encounter for screening for COVID-19; N39.0 Urinary tract infection, site not specified; Z79.890 Hormone replacement therapy; Z88.1 Allergy status to other antibiotic agents; Z66 Do not resuscitate; Z86.711 Personal history of pulmonary embolism
CPT/HCPCS: 71046; 80053; 81003; 81015; 84443; 84484; 85025; 87070; 87086; 87502; 87811; 87880; 93005; 93306; 96360; 97162; 97166; 99285; G0378

== ENCOUNTER → 2024-04-01 14:12 | Outpatient (REF) | payer OTHER, SELFPAY ==
[2024-04-01 14:59] LABS: Blood Urea Nitrogen 14 mg/dl (7-17); Carbon Dioxide 28 mmol/L (22-30); Chloride 98 mmol/L (98-107); Glucose 88 mg/dl (70-99); Potassium 4.3 mmol/L (3.5-5.1); Sodium 134 mmol/L (135-145); eGFR > 60.00
== END ==
LOC: OLABPATH 14:12
PROVIDERS: ATTENDING PHYSICIAN Internal Medicine
DX: R79.0 Abnormal level of blood mineral (principal)
CPT/HCPCS: 36415; 80048

== ENCOUNTER 2024-11-06 03:56 | Emergency (ER) | payer OTHER, SELFPAY ==
[2024-11-06 04:01] VITALS: BP 134/66
[2024-11-06 04:03] VITALS: BP 134/66
[2024-11-06 05:00] VITALS: BP 126/68
--- NOTE | 2024-11-06 05:42 | ED.GENMED ---
History of Present Illness
<Brennen Aj MD, Resident - Last Filed: 11/06/24 06:30>
General
Chief Complaint: Fall
Source: records
Time Seen by Provider: 11/06/24 05:29
History of Present Illness
History of Present Illness:
Patient is an 84-year-old female who presents to the emergency department after falling and striking her head against her bedside table at her long-term care facility [facility]. She suffers from Alzheimer's dementia, Parkinson's, hypertension,
hyperlipidemia, hypothyroidism. When speaking to the patient she does not seem to be certain of her answers but is able to endorse that she is having head pain and face pain. She points to the bridge of her nose which is clearly bruised from a
hit and there is redness over her forehead. She is oriented to self but not place or time. She thinks that she lost consciousness after the fall but is uncertain if that is the case or for how long a duration of time. She does not have any nausea
vomiting or diarrhea. She does not have any shortness of breath chest tightness or dizziness.
Past History
<Brennen Aj MD, Resident - Last Filed: 11/06/24 06:30>
Past History
ED Past Medical History: Cancer (Breast CA), HTN, Hypercholesterolemia, Hypothyroidism, Psychiatric (Depression) and Other (Dementia, Parkinson's, osteoporosis)
ED Past Surgical History: Other (lumpectomy)
Social History
Tobacco: Non-smoker
Alcohol: None
Drug: None
Living: [facility]
Family History
Family History: Other (NA)
Review of Systems
<Brennen Aj MD, Resident - Last Filed: 11/06/24 06:30>
Review of Systems
Unable to obtain full review of systems at this time due to: dementia
Neurological: Reports headache
Phy Exam
<Brennen Aj MD, Resident - Last Filed: 11/06/24 06:30>
Physical Exam
Physical Exam:
Physical exam limited due to dementia
General Physical Exam
General Presentation: well appearing and no apparent distress
General Skin: other ( Bruising over the bridge of the nose and redness over the forehead after a head strike on bedside table)
General Habitus: elderly
Cardiovascular Exam
Cardiovascular Exam: regular rate/rhythm, no edema, no gallop, no JVD and no murmur
Pulmonary Exam
Pulmonary Exam: lungs clear, no respiratory distress, no rales, chest non tender, no crackles, no rhonchi, no stridor, no wheezing and no cough
Skin Exam
Skin Exam: normal color
Course
<Brennen Aj MD, Resident - Last Filed: 11/06/24 06:30>
Orders/Labs/Results
Orders:
Orders
11/06/24 05:37
CT Head W/o Iv Contrast Urgent
Comment:
Reason For Exam: Fall with head strike with loss of consciousness
11/06/24 07:22
Acetaminophen [Tylenol] 650 mg PO NOW STA
Vital Signs
Initial and Last Documented VS:
Initial Vital Signs
Temp Pulse Resp BP Pulse Ox
99.2 F 96 22 134/66 96
11/06/24 04:01 11/06/24 04:01 11/06/24 04:01 11/06/24 04:01 11/06/24 04:01
Last Documented Vital Signs
Temp Pulse Resp BP Pulse Ox
99.2 F 84 18 126/68 94
11/06/24 04:01 11/06/24 06:30 11/06/24 06:30 11/06/24 05:00 11/06/24 06:30
<Yi Jackson DO - Last Filed: 11/06/24 07:26>
Orders/Labs/Results
Orders:
Orders
11/06/24 05:37
CT Head W/o Iv Contrast Urgent
Comment:
Reason For Exam: Fall with head strike with loss of consciousness
11/06/24 07:22
Acetaminophen [Tylenol] 650 mg PO NOW STA
Vital Signs
Initial and Last Documented VS:
Initial Vital Signs
Temp Pulse Resp BP Pulse Ox
99.2 F 96 22 134/66 96
11/06/24 04:01 11/06/24 04:01 11/06/24 04:01 11/06/24 04:01 11/06/24 04:01
Last Documented Vital Signs
Temp Pulse Resp BP Pulse Ox
99.2 F 84 18 126/68 94
11/06/24 04:01 11/06/24 06:30 11/06/24 06:30 11/06/24 05:00 11/06/24 06:30
<Brennen Aj MD, Resident - Last Filed: 11/06/24 06:30>
*Pulse Oximetry
SaO2: 91
Oxygen Mode of Delivery: Room air
Patient hypoxic: no
*Critical Care Note
Total Time (30-74mins, 75-104mins- exclusive of procedures): 60
<Yi Jackson DO - Last Filed: 11/06/24 07:26>
*Radiology
Radiology exam reviewed: radiology read reviewed
*Critical Care Note
Total Time (30-74mins, 75-104mins- exclusive of procedures): Not Applicable
<Brennen Aj MD, Resident - Last Filed: 11/06/24 06:30>
Update Note
Update Note:
Problem List:
Headache status post fall
dementia
Plan:
CT head without IV contrast
rule out intracranial bleed or any acute intracranial processes
Differential Diagnoses:
subdural/epidural hematoma of the brain
Radiology:
- CT of the head without IV contrast conducted on 11/06/2024: no acute intracranial hemorrhage. No evidence of acute infarct seen
EKG: Not applicable
Labs: not applicable
Updates:
CT of the head conducted in the emergency department showed no acute intracranial hemorrhage and no evidence of acute infarct.
Patient is at baseline and would like to be discharged.
There are no barriers that impede the patient from being safely discharged at the present time.
Patient should follow-up with her primary care provider within 1 week following discharge.
ED Attending Note
<Brennen Aj MD, Resident - Last Filed: 11/06/24 06:30>
-
Portions of this chart may have been created with voice recognition software.� Occasional wrong word or��sound alike� substitutions may have occurred due to the inherent limitations of voice recognition software.
<Yi Jackson DO - Last Filed: 11/06/24 07:26>
ED Attending Note
Patient seen and examined by attending physician: Yes
I performed a history and physical exam of patient and discussed management with resident, I reviewed resident's note and agree with documented findings and plan of care.: Yes
ED Attending Note:
84-year-old woman with history of Alzheimer's dementia, Parkinson's disease, hypertension, hyperlipidemia. Resident of long-term [facility]. Presents to the ED after rolling out of bed striking her forehead against her bedside table. She takes
no anticoagulants. According to EMS and [facility] records she is COVID-positive. No report of respiratory distress.
84-year-old woman appears her stated age. Somewhat frail in appearance but bright and alert, pleasant, easily communicative. No cough appreciated. No respiratory distress.
HEENT: There is a superficial abrasion/contusion to the forehead with local soft tissue swelling, minimal local tenderness to palpation. There is superficial abrasion bridge of the nose without local tenderness nor ecchymosis. No epistaxis nor
septal hematoma. TMs are clear bilaterally. Posterior pharynx is clear. No dental tenderness. No facial tenderness.
Neck is supple, nontender, full range of motion without difficulty nor pain.
Heart is regular rate and rhythm. Chest is nontender.
Lungs are clear to auscultation.
Abdomen is soft without appreciable tenderness.
Extremities without clubbing or cyanosis nor edema. No palpable tenderness. Full range of motion without difficulty nor pain.
Neuro: Awake alert and oriented x 2. No focal neurodeficits. Appears to be at her baseline.
Concern for closed head injury thus will check CT of the head. If unremarkable we will plan for discharge back to the [facility] for continued care.
Local wound care to superficial abrasions. There is no lacerations.
Discharge Plan
Departure
Patient Disposition: Home (Routine Discharge)
Date of Disposition: 11/06/24
Time of Disposition: 06:31
Patient with high blood pressure during this ER visit?: No
Discharge Problem:
Fall against object
Instructions: Head Injury in Adults (DC), Preventing falls in adults
Prescriptions:
No Action
acetaminophen 325 MG tablet
650 mg PO Q6H PRN (Reason: mild pain/temp>100)
atorvastatin 20 MG tablet
20 mg PO DAILY@1999
cyanocobalamin (vitamin B-12) 1,000 MCG tablet
1,000 mcg PO DAILY
melatonin 3 MG tablet
3 mg PO HS
gabapentin 100 MG capsule
100 mg PO BID@0800,1700
memantine 10 MG tablet
10 mg PO BID@0800,1700
calcium carbonate-vitamin D3 [Oyster Shell Calcium-Vit D3] 500 MG tablet
1 tab PO DAILY
sertraline 100 mg Tablet
100 mg PO DAILY
ondansetron HCl 4 mg Tablet
4 mg PO Q6H PRN (Reason: nausea)
levothyroxine 88 mcg tablet
88 mcg PO DAILY
CertaVite Senior 0.4 mg-300 mcg- 250 mcg Tablet
1 tab PO DAILY
metoprolol succinate 25 mg Tablet Extended Release 24 Hr
12.5 mg PO DAILY Qty: 30 0RF
Referrals:
Anuel Doe DO [Family Provider] - Follow up in 1 week
Interventions
Interventions:
*Risk Screen - Suicide Last Done: 11/06/24 04:01
*General Assessment Last Done: 11/06/24 04:01
*Neglect/Abuse Screening Last Done: 11/06/24 04:01
*ED- Fall Risk Assessment Last Done: 11/06/24 04:21
*ED COVID-19 Vaccine History Last Done: 11/06/24 04:21
ED-Musculoskeletal Assessment Last Done: 11/06/24 04:14
ED- Neurological Assessment Last Done: 11/06/24 04:14
ED-Skin Assessment Last Done: 11/06/24 04:14
Discharge Date and Time
Print Language: PALAUAN
--- NOTE | 2024-11-06 07:09 | EDRN ---
Dr. Jackson in w/ pt at this time.
[2024-11-06] MEDS: TYLENOL 650 MG PO (07:34)
[2024-11-06 07:39] VITALS: BP 122/78
--- NOTE | 2024-11-06 07:43 | EDRN ---
Pt's forehead and bridge of nose cleansed w/ NSS then whole area dressed w/ double antibiotic ointment and vaseline to yolk spray drier areas of skin at this time,.
--- NOTE | 2024-11-06 08:57 | EDRN ---
Filemon FUNES left message at [facility] where pt resides for a call back for report at 7:00 this am. No call back from facility.
--- NOTE | 2024-11-06 08:58 | EDRN ---
Second attempt at calling report at this time to [facility] and gave report to RN rubbish collection supervisor at facility [facility].
== END 2024-11-06 09:47 | disposition home or self-care (01) ==
LOC: EMR 03:56
PROVIDERS: EMERGENCY PHYSICIAN Emergency Medicine; FAMILY PHYSICIAN Internal Medicine
DX: Z04.3 Encounter for examination and observation following other accident (principal); W01.190A Fall on same level from slipping, tripping and stumbling with subsequent striking against furniture, initial encounter; Y92.122 Bedroom in nursing home as the place of occurrence of the external cause; G30.9 Alzheimer's disease, unspecified; F02.80 Dementia in other diseases classified elsewhere, unspecified severity, without behavioral disturbance, psychotic disturbance, mood disturbance, and anxiety; I10 Essential (primary) hypertension; E78.00 Pure hypercholesterolemia, unspecified; G20.A1 Parkinson's disease without dyskinesia, without mention of fluctuations; E03.9 Hypothyroidism, unspecified; F32.A Depression, unspecified; M81.0 Age-related osteoporosis without current pathological fracture; Z85.3 Personal history of malignant neoplasm of breast
CPT/HCPCS: 99284; 70450

== ENCOUNTER → 2024-12-02 18:39 | Outpatient (REF) | payer OTHER, SELFPAY ==
[2024-12-02 19:29] LABS: Urine Character Slightly Cloudy (Clear)
== END ==
LOC: OLABPATH 18:39
PROVIDERS: ATTENDING PHYSICIAN Internal Medicine
DX: N39.0 Urinary tract infection, site not specified (principal)
CPT/HCPCS: 81003; 81015; 87077; 87086; 87186